=== PATIENT | male | born 1970 | race American Indian/Alaskan Native ===

== ENCOUNTER 2017-09-15 19:32 | Emergency (ER) | payer SELFPAY ==
[2017-09-15] MEDS ORDERED: TYLENOL ONE (20:09)
[2017-09-15] MEDS ORDERED: TYLENOL PO ONE (20:48)
--- NOTE | 2017-09-15 21:59 | XRay Report ---
FINAL REPORT EXAM: XR FOOT 3+V RT HISTORY: Penitrating inj, blood, Rt 2nd digit TECHNIQUE: Four views right foot PRIORS: None. FINDINGS: No fracture or dislocation identified. Joint spaces are within normal limits. No radiopaque foreign body seen. There is soft tissue swelling tip of the 2nd toe IMPRESSION: Soft tissue swellings tip of the 2nd toe No fracture or radiopaque foreign body identified
[2017-09-15] MEDS ORDERED: BOOSTRIX IM ONE (22:50)
[2017-09-15] MEDS ORDERED: NORCO 5/325 PO ONE (22:50)
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
[2017-09-15 23:58] VITALS: BP 191/127
== END 2017-09-15 23:59 | disposition critical access hospital (66) ==
LOC: ED 19:32
DX: S91.139A Puncture wound without foreign body of unspecified toe(s) without damage to nail, initial encounter (principal); S90.811A Abrasion, right foot, initial encounter; I10 Essential (primary) hypertension; E11.9 Type 2 diabetes mellitus without complications
CPT/HCPCS: 90471; 90715